=== PATIENT | male | born 1975 | race Caucasian/White ===

== ENCOUNTER 2018-08-22 14:46 | Emergency (ER) | payer SELFPAY ==
[~2018-08-22] VITALS: Ht 177.8 cm; Wt 70.8 kg
[2018-08-22 15:01] VITALS: BP 135/71; Ht 177.8 cm; Wt 70.8 kg
== END 2018-08-22 16:39 | disposition home or self-care (01) ==
LOC: ED 14:46
DX: G89.29 Other chronic pain (principal); M25.571 Pain in right ankle and joints of right foot; F17.210 Nicotine dependence, cigarettes, uncomplicated
CPT/HCPCS: 99406